=== PATIENT | male | born 1950 | race Caucasian/White ===

== ENCOUNTER 2020-03-18 10:44 | Outpatient (REF) | payer MEDICARE, BC, SELFPAY | END 2020-03-18 10:45 | disposition home or self-care (01) | LOC: HO.LNP 10:44 | PROVIDERS: Visit Provider Family Medicine | DX: Z20.828 Contact with and (suspected) exposure to other viral communicable diseases (principal) | CPT/HCPCS: U0003 ==

== ENCOUNTER 2024-02-01 06:13 | Day surgery (SDC) | payer MEDICARE, BC, SELFPAY ==
[2024-01-30 09:20] VITALS: BMI 29.8
--- NOTE | 2024-01-31 09:19 | P.CONAN_ITS ---
Documented by User: Morenita Alaniz NP 01/31/24 09:20 HPI - Anesthesia Eval Consult details Narrative: 73yo M for Upper Endoscopy and Colonoscopy PMFSH Active Problems Active Problems: All Active Problems Nasal congestion (Acute) Past Medical History Medical History (Updated 01/30/24 @ 09:16 by Татьяна Phillips RN) Depression Arthritis Diverticulosis Hiatal hernia GERD (gastroesophageal reflux disease) Surgical History Surgical History (Updated 01/30/24 @ 09:17 by Татьяна Phillips RN) Hx of toe surgery Hx of tonsillectomy Hx of right knee surgery H/O colonoscopy History of esophagogastroduodenoscopy (EGD) Social History Social History Are you a primary critical care nurse to a significant other at home: No Do you presently have visiting nurse or other home services: No Patient Tobacco Use Status: Current someday Tobacco user Tobacco use type: Cigar Use of substances other than those prescribed or required for medical reasons: No Have you been hit, kicked, punched, or otherwise hurt by someone within the past year? If so, by whom?: No Are you DNR?: No Advance Directives: No Advance Directives Information Provided: Yes Recently lost weight without trying: No Meds Allergies Allergy/AdvReac Type Severity Reaction Status Date / Time Penicillins [PENICILLINS] Allergy Unknown UNKNOWN Verified 02/01/24 07:05 Sulfa (Sulfonamide AdvReac Mild ABDOMINAL Verified 02/01/24 07:05 Antibiotics) UPSET [SULFA (SULFONAMIDE ANTIBIOTICS)] Home Medications ?Medication ?Instructions ?Recorded ?Confirmed ?Last Taken ?Type meloxicam 15 mg tablet 15 mg PO DAILY 01/30/24 01/30/24 Unknown History ranitidine HCl 150 mg capsule 150 mg PO BEDTIME PRN Acid Reflux 01/30/24 01/30/24 Unknown History sertraline 50 mg tablet 50 mg PO DAILY 01/30/24 01/30/24 Unknown History tamsulosin 0.4 mg capsule 0.4 mg PO DAILY 01/30/24 01/30/24 Unknown History tramadol 50 mg tablet 50 mg PO QID PRN Pain 01/30/24 01/30/24 Unknown History Exam Height,Weight and Vital Signs: Height 5 ft 10 in Weight 94.347 kg Assessment and Plan Assessment Anesthesia Assessment: Chart Reviewed Documented by User: Vanessa Morataya MD 02/01/24 07:07 PMF Past Medical History Medical History (Updated 01/30/24 @ 09:16 by Татьяна Phillips RN) Depression Arthritis Diverticulosis Hiatal hernia GERD (gastroesophageal reflux disease) Family History Family history of problems with anesthesia: No Surgical History Surgical History (Updated 01/30/24 @ 09:17 by Татьяна Phillips RN) Hx of toe surgery Hx of tonsillectomy Hx of right knee surgery H/O colonoscopy History of esophagogastroduodenoscopy (EGD) History of Problems with Anesthesia: No Social History Social History Are you a primary critical care nurse to a significant other at home: No Do you presently have visiting nurse or other home services: No Patient Tobacco Use Status: Current someday Tobacco user Tobacco use type: Cigar Use of substances other than those prescribed or required for medical reasons: No Have you been hit, kicked, punched, or otherwise hurt by someone within the past year? If so, by whom?: No Are you DNR?: No Advance Directives: No Advance Directives Information Provided: Yes Recently lost weight without trying: No Meds Allergies Allergy/AdvReac Type Severity Reaction Status Date / Time Penicillins [PENICILLINS] Allergy Unknown UNKNOWN Verified 02/01/24 07:05 Sulfa (Sulfonamide AdvReac Mild ABDOMINAL Verified 02/01/24 07:05 Antibiotics) UPSET [SULFA (SULFONAMIDE ANTIBIOTICS)] Home Medications ?Medication ?Instructions ?Recorded ?Confirmed ?Last Taken ?Type meloxicam 15 mg tablet 15 mg PO DAILY 01/30/24 01/30/24 Unknown History ranitidine HCl 150 mg capsule 150 mg PO BEDTIME PRN Acid Reflux 01/30/24 01/30/24 Unknown History sertraline 50 mg tablet 50 mg PO DAILY 01/30/24 01/30/24 Unknown History tamsulosin 0.4 mg capsule 0.4 mg PO DAILY 01/30/24 01/30/24 Unknown History tramadol 50 mg tablet 50 mg PO QID PRN Pain 01/30/24 01/30/24 Unknown History Exam Airway Mallampati Class: II TM Dist: >3cm Neck ROM: Full Heart: rrr Lungs: cta Assessment and Plan Assessment Anesthesia Assessment: Anesthesia Plan Discussed Final Anesthetic Review Family History of Problems with Anesthesia: No History of Problems with Anesthesia: No NPO: Yes ASA Class: II Final Preanesthetic Review: No Changes in Pt Med Stat, Meds/Allgs Chart Reviewed and Consent Obtained/Reviewed Patient Risk: Low Procedure Risk: Intermediate Anesthetic Plan Anesthetic Plan: MAC: Disposition: Standard PACU
[2024-02-01 06:59] VITALS: BP 139/76; PULSE 70; RESP 16; TEMP 36.5; O2SAT 96; BMI 30.1
[2024-02-01] MEDS: Lactated Ringers 1,000 ML 100 ML IVCONT (07:09)
[2024-02-01 08:29] VITALS: BP 131/64; PULSE 82; RESP 16; TEMP 36.8; O2SAT 97
--- NOTE | 2024-02-01 08:37 | PM.OP ---
Brief Operative Note Date of Service: 02/01/24 Pre-op diagnosis: GERD, Screening Post-op diagnosis: other (Erosive esophagitis, Diverticulosis) Procedure: EGD with biopsies, Colonoscopy to the cecum Surgeon: Scotty Shaw MD Anesthesia: MAC Was an Supervisor Tubing used for this Procedure?: No Estimated blood loss (mL): 2.0 Pathology: other (A. Esophagus 30-35cm) Condition: stable Disposition: PACU
[2024-02-01 08:46] VITALS: BP 124/61; PULSE 64; RESP 18; TEMP 36.8; O2SAT 97
--- NOTE | 2024-02-01 08:51 | OP_ITS ---
DATE OF SERVICE: 02/01/2024 SURGEON: Scotty Shaw MD INDICATIONS: The patient presents for evaluation of chronic gastroesophageal reflux, previous history of King's esophagus, personal history of tubular adenoma of the colon, family history of colon cancer, and colorectal cancer screening. PREOPERATIVE DIAGNOSIS: POSTOPERATIVE DIAGNOSIS: The patient presents for evaluation of chronic gastroesophageal reflux, previous history of King's esophagus, personal history of tubular adenoma of the colon, family history of colon cancer, and colorectal cancer screening, erosive esophagitis, hiatal hernia, rule out King's esophagus, diverticulosis and internal hemorrhoids. PROCEDURE PERFORMED: Esophagogastroduodenoscopy with biopsies, and colonoscopy to the cecum. ESTIMATED BLOOD LOSS: COMPLICATIONS: ANESTHESIA: Monitored anesthesia care. ASSISTANTS: SPECIMENS: DESCRIPTION OF PROCEDURE: The patient was placed in the left lateral decubitus position. The Olympus video gastroscope was passed in the posterior oropharynx and upper esophagus under direct vision. The scope was passed slowly to the distal esophagus. The gastroesophageal junction appeared at 35 cm. Extending from this to 30 cm were areas of erosive esophagitis with linear erosions and approximately 1 cm ulceration. The EG junction was somewhat irregular, but no definitive evidence of King's esophagus. The scope entered the stomach, there was a small hiatal hernia. The scope was advanced to the pylorus and the duodenum was cannulated to the descending portion. The duodenum including the bulb appeared normal without mass or ulceration. The scope was withdrawn back to the stomach. The gastric antrum and body appeared normal with good peristalsis. The scope was retroflexed visualizing the proximal stomach carefully, which appeared normal, without any sign of mass or ulceration. The scope was straightened and withdrawn back to the esophagus. I obtained multiple biopsies in the esophagus between 30 and 35 cm in the area of erosive esophagitis and at the EG junction. Again, there was no definitive evidence of King esophagus. Proximal to 30 cm, the esophageal mucosa appeared normal. The scope was withdrawn from the patient, he was turned around for colonoscopy. The digital rectal exam revealed no abnormalities. The Olympus video pediatric colonoscope was entered into the rectum and advanced easily to the cecum. Once in the cecum, I did identify normal-appearing cecal pouch with appendiceal orifice and a normal-appearing ileocecal valve. The entire cecum and ileocecal valve appeared normal. The scope was slowly withdrawn assessing all mucosal surfaces carefully. Preparation was excellent. I did not visualize any sign of polyps, colitis, nor angiodysplasia. There was a mild amount of sigmoid diverticulosis. In the rectum, scope was retroflexed visualizing internal hemorrhoids, but no other pathology. The rectal mucosa appeared normal. The scope was straightened and withdrawn from the patient. He tolerated both procedures well and was returned to recovery area in stable condition. IMPRESSION: 1. Erosive esophagitis. 2. Hiatal hernia. 3. Rule out King's esophagus. 4. Diverticulosis. 5. Internal hemorrhoids. PLAN: The results of the pathology will be checked. At this time, he is not using any particular medication on a regular basis for his reflux. He has not been symptomatic. However, given today's findings, I shall restart him on omeprazole 40 mg daily and advised him to continue that long-term given today's findings and the fact that he is not particularly symptomatic. I think it would be important to keep him on chronic acid suppression since he is not feeling the acid reflux and is obviously having damage to the esophagus. I would recommend a repeat colonoscopy in 5 years for further screening and surveillance. I will plan to see him in followup at some point in 2024 and will arrange for a followup endoscopy to assess for healing of the esophagitis. He was advised not to use any aspirin and NSAIDs for at least 1 week. This has been discussed with his significant other. MD MARTIR Gonzales/DOMITILA / [id number] MTDNess
== END 2024-02-01 09:11 | disposition home or self-care (01) ==
PROVIDERS: PCP Internal Medicine; Visit Provider Internal Medicine
PROC: (CPT 43239; principal; 2024-02-01 07:30)
DX: Z12.11 Encounter for screening for malignant neoplasm of colon (principal); Z86.0101 Personal history of adenomatous and serrated colon polyps; Z80.0 Family history of malignant neoplasm of digestive organs; K57.30 Diverticulosis of large intestine without perforation or abscess without bleeding; K64.8 Other hemorrhoids; K21.9 Gastro-esophageal reflux disease without esophagitis; K20.80 Other esophagitis without bleeding; K44.9 Diaphragmatic hernia without obstruction or gangrene; F32.A Depression, unspecified; Z79.899 Other long term (current) drug therapy; Z88.2 Allergy status to sulfonamides; Z88.0 Allergy status to penicillin; Z98.890 Other specified postprocedural states
CPT/HCPCS: 43239; G0105; 88305; J1100; J1596; J2003; J2704

== ENCOUNTER 2024-09-12 05:50 | Day surgery (SDC) | payer MEDICARE, BC, SELFPAY ==
[2024-09-10 13:51] VITALS: BMI 31.6
--- OUTSIDE RECORDS SUMMARY | 2024-09-11 12:20 | XMS_ITS | Patient Health Record ---
Author Organization [facility] Address [address] [place] [id number] Care Team Providers Care Clamp Truck Driver Name Role Phone Frank Cantrell MD Primary Care Provider SUJIT Reed Unavailable [phone] MIKE AMEZQUITA Unavailable [phone] SORAYA DANGELO Unavailable [phone] Allergies Allergen (clinical drug ingredient) Drug/Non Drug Allergy documented on EMR Reaction Allergy Type Onset Date Status Penicillin Unknown Drug Allergy Active Substance with sulfonamide structure and antibacterial mechanism of action (substance) Sulfa Antibiotics Unknown Drug Allergy Active Results Component Value Reference Range Notes XR Ankle 1-2 v RT Reviewed date:04/03/2024 09:30:07 AM Interpretation: Performing Lab: Notes/Report: XR Foot 3 v RT Reviewed date:04/03/2024 09:31:39 AM Interpretation: Performing Lab: Notes/Report: MRI : Foot (C-) CPT 93389 - Right Reviewed date:04/27/2024 09:13:18 AM Interpretation: Performing Lab: Notes/Report: [facility] Accession Number: [id number] Patient Name: ZEUS FRENCH Date of : 1950 Date of Exam: 04-08-2024 Referring Physician: Mike Ovalles [facility] [address] [place] [id number] Exam: MR Foot (C-) CPT 35522 - Right Room Description: [facility] Espr 1.5 EXAMINATION: MR Foot (C-) CPT 85479 INDICATION: Metatarsalgia, right foot, evaluate for soft tissue structures that could be contributing to her first MTP joint pain TECHNIQUE: Multiplanar multisequence imaging of right forefoot was performed without administration of intravenous contrast. COMPARISON: None. FINDINGS: Motion limited exam. Bones and joints: Prior arthrodesis across the first metatarsophalangeal joint with susceptibility artifact, limiting evaluation. Trabecular bridging and osseous fusion across the first metatarsophalangeal joint. Fusion across the DIP joint of the fifth toe. Second and third hammertoe deformity. Third plateau deformity. Mild bone marrow edema like signal within the distal portion of the second proximal phalanx, may be secondary to remote injury. No acute fracture. Mild diffuse demineralization. Soft Tissues: Tiny second MTP joint fluid. Trace second and third intermetatarsal bursal fluid. No full-thickness retracted tear of the tendons. Mild perineural soft tissue thickening within the first intermetatarsal webspace. No definite neuroma. IMPRESSION: Prior arthrodesis across the first metatarsophalangeal joint with susceptibility artifact, limiting evaluation. Mild perineural fibrosis within the first intermetatarsal webspace. No definite neuroma. Electronically Signed By: Aury Mcclendon MD Reason For Referral No Information Medications Medication SIG (Take, Route, Fr equency, Duration) Notes Start Date End Date Status Sertraline HCl 50 MG Oral for 90 Days Active Tamsulosin HCl 0.4 MG Oral for 90 Days Active Omeprazole 40 MG Oral for 90 Days Active Social History Tobacco Use: Social History Observation Description Date Details (start date - stop date) Never Smoker NA - NA Tobacco Control (Standard) Question Answer Notes Tobacco use: Nonsmoker AUDIT-C (Standard) Question Answer Notes Did you have a drink contain ing alcohol in the past year? Yes How often did you have six o r more drinks on one occasion in the past year? Never (0 point) How many drinks did you have on a typical day when you were drinking in the past year? 1 or 2 drinks (0 point) How often did you have a dri nk containing alcohol in the past year? 2 to 4 times a month (2 points) Points 2 Interpretation Negative Problems Problem Type SNOMED Code ICD Code Onset Dates Problem Status W/U Status Risk Notes Problem 566656529547339 Metatarsalgia, right foot (M77.41) Active confirmed Problem 0429539672153466 Primary osteoarthritis of right foot (M19.071) Active confirmed Problem 74730608 Sesamoiditis of right foot (M25.871) Active confirmed Vital Signs Height 70 in 05/14/2024 Weight 206 lbs 05/14/2024 BMI 29.55 kg/m2 05/14/2024 Encounters Encounter Location Date Provider Diagnosis [facility] [address] [place] [phone] 04/03/2024 MIKE XXFIORENTINO Right foot pain M79.671 and Metatarsalgia, right foot M77.41 [facility] [address] [place] [phone] 04/26/2024 SUJIT BOLAND Sesamoiditis of righ t foot M25.871 [facility] [place] [address] [address] 05/14/2024 SUJIT BOLAND Sesamoiditis of righ t foot M25.871 and Primary osteoarthritis of right foot M19.071 [facility] [place] [address] [place] [address] 04/26/2024 SUJIT BOLAND Assessments Encounter Date Diagnosis (ICD Code) Assessment Notes Treatment Notes Treatment Clinical Notes Section Notes 04/03/2024 Metatarsalgia, right foot (ICD-10 - M77.41) I recommend to the patient today that we obtain an MRI of the right foot at times as well exam showing a hyperkeratotic area causes pain and numbness to the distal hallux. I recommend that the patient continues use of good supportive shoe wear in the meantime, and uses [id number] NSAID/Tylenol as needed to help with any pain he is having. I did offer him another metatarsal bar today but he declined as he has tried all conservative treatments outside of surgery to help with his pain. The patient will return to see me 1 week after he obtains the MRI and we will discuss the results and further treatment options at that time. I did discuss with the patient that he could potentially have a Quijano's neuroma or scar tissue that is contributing to the numbness in his forefoot, but the MRI will give us more details and we will talk about potential surgical intervention if it is indicated at that time. All questions were answered, the patient understood and was comfortable with this plan. 04/03/2024 Right foot pain (ICD-10 - M79.671) 04/26/2024 Sesamoiditis of right foot (ICD-10 - M25.871) Plan- - After discussing the findings from the MRI and the patient's ongoing symptoms, we will initially try a conservative approach. The patient will use a metatarsal pad in his shoe to help alleviate pressure on the sesamoid area. This should help reduce the pain he experiences, particularly when driving. We will follow up in three weeks to assess the effectiveness of this intervention. If the pad does not provide sufficient relief, we will consider surgical options, including the potential removal of the fibular sesamoid. We discussed the possibility of removing both sesamoids if necessary. The patient understands that the surgery would require a period of non-weightbearin g for a couple of weeks, followed by gradual weightbearing. We also reviewed the concept of the double crush phenomenon, which may be contributing to his symptoms, given his history of back issues and piriformis syndrome. He will continue to see Dr. Arnett for further management of his back and piriformis issues. The patient is scheduled to see Dr. Arnett on Tuesday and will discuss the plan with her as well. Assessment - - - - -- 1. Sesamoiditis, right lower extremity 2. History of right first metatarsophalangeal joint fusion 3. Mild perineural fibrosis within the first intermetatarsal webspace 4. Persistent pain in the ball of the right foot exacerbated by driving 05/14/2024 Primary osteoarthritis of right foot (ICD-10 - M19.071) Assessment - - - - -- 1. Right sesamoiditis 2. Status post right first MTP joint fusion (2021) 3. Mild perineural fibrosis within the first intermetatarsal webspace 4. Second and third metatarsophalangeal hammertoe deformities 5. Mild arthritis at the sesamoid and metatarsal head 05/14/2024 Sesamoiditis of right foot (ICD-10 - M25.871) Plan- - The patient, Zeus French, will continue to use the pad as it provides significant relief, especially during walking. He should continue using his [place] shoes, as they seem to accommodate the pad well and provide comfort. If he experiences increased discomfort or finds the pad ineffective, he is advised to switch to casual shoes for short durations, such as attending [employer]. He should avoid any activities that exacerbate the pain, particularly those that put direct pressure on the sesamoid area, such as prolonged driving without cruise control. The patient should maintain the use of Tramadol as prescribed by his primary care physician, Dr. Sood, and limit the intake to no more than three times a month to manage acute pain episodes. Injection into the sesamoids is not recommended due to the risk of fat necrosis and the temporary nature of relief. Surgical removal of the sesamoid bones may be considered if the pain becomes unmanageable. The surgery involves a small incision on the bottom of the foot and a recovery period that includes two weeks of non-weightbearin g followed by gradual return to walking. The patient should avoid surgery in the spring and plan for it post-summer. A follow-up appointment is scheduled for mid to late October to reassess the situation and finalize any surgical plans if necessary. The patient should contact the office if his condition worsens or if he experiences significant discomfort before the next scheduled appointment. Assessment - - - - -- 1. Right sesamoiditis 2. Status post right first MTP joint fusion (2021) 3. Mild perineural fibrosis within the first intermetatarsal webspace 4. Second and third metatarsophalangeal hammertoe deformities 5. Mild arthritis at the sesamoid and metatarsal head 04/03/2024 Other This note wa s dictated using Dragon Dictation and may contain grammatical errors Plan Of Treatment Next Appt Details Provider Name:SUJIT BOLAND, 11/12/2024 10:30:00 AM, [address] [place] [address], [place], [phone], Insurance Providers Payer Name Payer Address Payer Phone Subscriber Number Group Number Insured Name Patient Relationship to Insured Coverage Start Date Coverage End Date Medicare [address] [place] [address] [id number] Zeus Saini Self - patient is the insured [employer] [facility] [place][Note 2] [address] [place] [address] [id number] Zeus Saini Self - patient is the insured Medical (General) History Medical History History ICD Code Depression arthritis osteoarthritis Surgical History Surgery Date(Month/Year) R MTP Fusion 2021
--- NOTE | 2024-09-11 12:27 | HO.ANESPROP2 ---
HPI - Anesthesia Eval Consult details Narrative: 73yo M for Upper Endoscopy PMFSH Active Problems Active Problems: All Active Problems Nasal congestion (Acute) Past Medical History Medical History Enlarged prostate Depression Arthritis Diverticulosis Hiatal hernia GERD (gastroesophageal reflux disease) Family History Family history of problems with anesthesia: No Surgical History Surgical History Hx of toe surgery Hx of tonsillectomy Hx of right knee surgery H/O colonoscopy History of esophagogastroduodenoscopy (EGD) History of Problems with Anesthesia: No Social History Social History Are you a primary acute care surgeon to a significant other at home: No Do you presently have visiting nurse or other home services: No Patient Tobacco Use Status: Current someday Tobacco user Tobacco use type: Cigar Use of substances other than those prescribed or required for medical reasons: Yes Substance Use Type Other:: cbd tincture at -last used 09/11 Are you DNR?: No Advance Directives: No Advance Directives Information Provided: Yes Meds Allergies Allergy/AdvReac Type Severity Reaction Status Date / Time Penicillins (PENICILLINS) Allergy Unknown UNKNOWN Verified 09/12/24 06:47 Sulfa (Sulfonamide AdvReac Mild ABDOMINAL Verified 09/12/24 06:47 Antibiotics) (SULFA UPSET (SULFONAMIDE ANTIBIOTICS)) Home Medications ?Medication ?Instructions ?Recorded ?Confirmed ?Last Taken ?Type tamsulosin 0.4 mg capsule 0.4 mg PO DAILY 01/30/24 09/12/24 Unknown History omeprazole 40 mg capsule,delayed 40 mg PO DAILY 09/10/24 09/12/24 Unknown History release Exam Height,Weight and Vital Signs: Height 5 ft 10 in Weight 99.79 kg Assessment and Plan Assessment Anesthesia Assessment: Chart Reviewed Final Anesthetic Review Family History of Problems with Anesthesia: No History of Problems with Anesthesia: No
[2024-09-12 06:37] VITALS: BP 139/61; PULSE 75; RESP 15; TEMP 36.9; O2SAT 98; BMI 30.1
[2024-09-12] MEDS: Lactated Ringers 1,000 ML 100 ML IVCONT (06:55)
--- NOTE | 2024-09-12 07:55 | HO.ANESPROP2 ---
COUNTS INCLUDE 234 BEDS AT THE [facility] Active Problems Active Problems: All Active Problems (Updated 09/12/24 @ 06:46 by Nakita Last RN) Nasal congestion (Acute) Past Medical History Medical History Enlarged prostate Depression Arthritis Diverticulosis Hiatal hernia GERD (gastroesophageal reflux disease) Functional capacity: independent ambulation Family History Family history of problems with anesthesia: No Surgical History Surgical History Hx of toe surgery Hx of tonsillectomy Hx of right knee surgery H/O colonoscopy History of esophagogastroduodenoscopy (EGD) History of Problems with Anesthesia: No Social History Social History Are you a primary client care specialist to a significant other at home: No Do you presently have visiting nurse or other home services: No Patient Tobacco Use Status: Current someday Tobacco user Tobacco use type: Cigar Use of substances other than those prescribed or required for medical reasons: Yes Substance Use Type Other:: cbd tincture at -last used 09/11 Are you DNR?: No Advance Directives: No Advance Directives Information Provided: Yes Meds Allergies Allergy/AdvReac Type Severity Reaction Status Date / Time Penicillins (PENICILLINS) Allergy Unknown UNKNOWN Verified 09/12/24 06:47 Sulfa (Sulfonamide AdvReac Mild ABDOMINAL Verified 09/12/24 06:47 Antibiotics) (SULFA UPSET (SULFONAMIDE ANTIBIOTICS)) Active Medications: Current Medications Lactated Ringer's (Lr) 1,000 mls @ 100 mls/hr IVCONT .Q10H DEEPIKA Last Admin: 09/12/24 06:55 Dose: 100 mls/hr Home Medications ?Medication ?Instructions ?Recorded ?Confirmed ?Last Taken ?Type tamsulosin 0.4 mg capsule 0.4 mg PO DAILY 01/30/24 09/12/24 Unknown History omeprazole 40 mg capsule,delayed 40 mg PO DAILY 09/10/24 09/12/24 Unknown History release Exam Height,Weight and Vital Signs: Height 5 ft 10 in Weight 95.254 kg Last Vital Signs Temp 98.5 F 09/12/24 06:37 Pulse 75 09/12/24 06:37 Resp 15 09/12/24 06:37 BP 139/61 09/12/24 06:37 Pulse Ox 98 09/12/24 06:37 O2 Del Method Room Air 09/12/24 06:37 Airway Mallampati Class: II TM Dist: >3cm Neck ROM: Full Heart: RRR Lungs: CTA Assessment and Plan Assessment Anesthesia Assessment: Anesthesia Plan Discussed Final Anesthetic Review Family History of Problems with Anesthesia: No History of Problems with Anesthesia: No NPO: Yes ASA Class: II Final Preanesthetic Review: Meds/Allgs Chart Reviewed, Consent Obtained/Reviewed and Anes Risks/Benef Reviewed Patient Risk: Low Procedure Risk: Low Anesthetic Plan Anesthetic Plan: MAC: Disposition: Standard PACU
[2024-09-12 08:05] VITALS: BP 108/67; PULSE 79; RESP 16; TEMP 36.5; O2SAT 95
--- NOTE | 2024-09-12 08:10 | P.BOP_ITS ---
Brief Operative Note Date of Service: 09/12/24 Pre-op diagnosis: GERD, King's Post-op diagnosis: other (Same, Hiatal hernia) Procedure: EGD with biopsies Surgeon: Scotty Shaw MD Anesthesia: MAC Was an Furniture Delivery Driver used for this Procedure?: No Estimated blood loss (mL): 2.0 Pathology: other (A. EG Junction at 34cm) Condition: stable Disposition: PACU
[2024-09-12 08:20] VITALS: BP 107/60; PULSE 59; RESP 18; TEMP 36.6; O2SAT 97
--- NOTE | 2024-09-12 08:35 | HO.POSTANES ---
Post Anesthesia Evaluation Post Anesthesia Evaluation Date of Service: 09/12/24 Vital Signs: Vital Signs Temp Pulse Resp BP Pulse Ox O2 Del Method 09/12/24 08:20 97.8 F 59 18 107/60 97 Room Air 09/12/24 08:05 97.7 F 79 16 108/67 95 Room Air 09/12/24 06:37 98.5 F 75 15 139/61 98 Room Air Anesthesia: Monitored Mental Status: Awake Pain Control: Satisfactory Nausea/Vomiting: None Hydration: Adequate Anesthesia-Related Issues: No Anes. Related Issues
--- NOTE | 2024-09-12 08:51 | OP_ITS ---
DATE OF SERVICE: 09/12/2024 SURGEON: Scotty Shaw MD INDICATIONS: The patient presents for evaluation of gastroesophageal reflux, erosive esophagitis, and King's esophagus. Full consent has been obtained from him for this, including risks of bleeding and perforation. PREOPERATIVE DIAGNOSIS: POSTOPERATIVE DIAGNOSIS: PROCEDURE PERFORMED: Esophagogastroduodenoscopy with biopsies. ESTIMATED BLOOD LOSS: COMPLICATIONS: ANESTHESIA: Monitored anesthesia care. ASSISTANTS: SPECIMENS: PREOPERATIVE DIAGNOSES: Gastroesophageal reflux, history of [place]'s esophagus, history of erosive esophagitis. POSTOPERATIVE DIAGNOSES: Gastroesophageal reflux, history of King's esophagus, history of erosive esophagitis, hiatal hernia, healed esophagitis. DESCRIPTION OF PROCEDURE: The patient was placed in left lateral decubitus position. The Olympus video gastroscope was passed in the posterior oropharynx and upper esophagus under direct vision. The scope was passed slowly to the distal esophagus. The gastroesophageal junction appeared at 34 cm. There was some very minimal irregularity, consistent with reflux and less than 1 cm size areas of King's appearing mucosa. There was no esophagitis nor ulceration. The scope entered the stomach. There was a small hiatal hernia. The scope was advanced to the pylorus and the duodenum was cannulated to the descending portion. The duodenum including the bulb appeared normal without mass or ulceration. The scope was withdrawn back to the stomach. The gastric antrum and body appeared normal with good peristalsis. The scope was retroflexed, visualizing the proximal stomach carefully, which appeared normal, without any sign of mass or ulceration. The scope was straightened out and withdrawn back to the esophagus. Biopsies were obtained at the EG junction at 40 cm. Proximal to this, the esophageal mucosa appeared normal. There was no sign of any esophagitis. The scope was withdrawn from the patient. He tolerated the procedure well and was returned to recovery area in stable condition. IMPRESSION: 1. History of King's esophagus. 2. Hiatal hernia. PLAN: The results of the biopsies will be checked. Given his resolution of the erosive esophagitis, I did advise him to continue the omeprazole long-term. As long as there is no dysplasia seen on today's biopsies, I would recommend a repeat upper endoscopy in 2028, when he has his next screening colonoscopy. He will otherwise see me on a p.r.n. basis. MD MARTIR Gonzales/DOMITILA / [id number] MTDD
== END 2024-09-12 08:46 | disposition home or self-care (01) ==
PROVIDERS: PCP Internal Medicine; Visit Provider Internal Medicine
PROC: 0DJ08ZZ Inspection of Upper Intestinal Tract, Via Natural or Artificial Opening Endoscopic (ICD-10-PCS; CPT 43235; principal; 2024-09-12 07:30)
DX: K21.9 Gastro-esophageal reflux disease without esophagitis (principal); K44.9 Diaphragmatic hernia without obstruction or gangrene; Z87.19 Personal history of other diseases of the digestive system; Z79.899 Other long term (current) drug therapy
CPT/HCPCS: 43239; 88305; 88313; 88342; J2003; J2704